=== PATIENT | male | born 1990 | race Caucasian/White ===

== ENCOUNTER 2025-02-03 20:49 | Emergency (ER) | payer OTHER ==
[~2025-02-03] VITALS: Ht 188 cm; Wt 100.0 kg
[2025-02-03] MEDS ORDERED: DIPHTH,PERTUSS(ACELL),TET VAC 0.5 ML SYRINGE IM ONE (21:30)
[2025-02-03 21:54] VITALS: BP 137/86
[2025-02-05 12:53] LABS: HEPATITIS B SURFACE ANTIBODY >1000.00 IU/L (())
[2025-02-05 17:09] LABS: HIV 1,2 COMBO ANTIGEN/ANTIBODY Negative (Negative)
[2025-02-05 17:49] LABS: HEPATITIS C AB CIA INTERP Negative (Negative); HEPATITIS C ANTIBODY CIA INDEX <0.02 IV (())
== END 2025-02-03 22:25 | disposition home or self-care (01) ==
LOC: ED 20:49
PROVIDERS: Family Medicine
DX: S61.233A Puncture wound without foreign body of left middle finger without damage to nail, initial encounter (principal); Z77.21 Contact with and (suspected) exposure to potentially hazardous body fluids; W46.1XXA Contact with contaminated hypodermic needle, initial encounter
CPT/HCPCS: 36415; 84460; 86706; 86803; 90471; 90715; 99282-25